=== PATIENT | female | born 2000 | race Two or more races ===

== ENCOUNTER 2023-04-05 17:02 | Emergency (ER) | payer OTHER ==
[2023-04-05 17:13] VITALS: BP 118/66; PULSE 100; RESP 18; TEMP 98.2; BMI 21.6
[2023-04-05] MEDS ORDERED: ACETAMINOPHEN 500 MG TABLET (FP) PO ONE (17:46)
[2023-04-05] MEDS ORDERED: ACETAMINOPHEN 500 MG TABLET (FP) ONE (18:05)
== END 2023-04-05 19:30 | disposition home or self-care (01) ==
LOC: JERFT 17:02
DX: S90.852A Superficial foreign body, left foot, initial encounter (principal); M79.672 Pain in left foot; W45.8XXA Other foreign body or object entering through skin, initial encounter; Y93.01 Activity, walking, marching and hiking
CPT/HCPCS: 73630-TC-LT; 99283-25